=== PATIENT | male | born 1990 | race Two or more races ===

== ENCOUNTER 2024-07-06 15:57 | Emergency (ER) | payer MEDICAID, SELFPAY ==
--- NOTE | 2024-07-06 16:30 | PC.NURSE ---
called pt from lobby and outside and no answer @[id number]
--- NOTE | 2024-07-06 16:51 | PC.NURSE ---
Call pt from lobby and outside no answer
--- NOTE | 2024-07-06 17:17 | PC.NURSE ---
called pt from lobby and outside. no answer (x3)
== END 2024-07-06 16:30 | disposition left against medical advice (07) ==
PROVIDERS: Emergency Provider Emergency Medicine
DX: Z53.21 Procedure and treatment not carried out due to patient leaving prior to being seen by health care provider (principal)

== ENCOUNTER 2024-11-02 19:54 | Emergency (ER) | payer MEDICAID, SELFPAY ==
[2024-11-02 19:54] VITALS: BMI 25.0
--- NOTE | 2024-11-02 20:32 | PC.NURSE ---
pt did not answer when name was called and was not found outside.
--- NOTE | 2024-11-02 20:49 | PC.NURSE ---
PT ELOPED THE ER PRIOR TO BEING SEEN BY PROVIDER.
== END 2024-11-02 20:50 | disposition left against medical advice (07) ==
LOC: SERX 21:05
PROVIDERS: Emergency Provider Emergency Medicine
DX: Z53.21 Procedure and treatment not carried out due to patient leaving prior to being seen by health care provider (principal)

== ENCOUNTER 2025-09-04 21:33 | Emergency (ER) | payer MEDICAID, SELFPAY ==
[2025-09-04 21:34] VITALS: BMI 25.0
--- NOTE | 2025-09-04 22:10 | PC.NURSE ---
PATIENT STATED HE DID NOT HAVE TIME TO WAIT AND PROCEEDED TO LEAVE THE ED AT 0.
== END 2025-09-04 22:10 | disposition left against medical advice (07) ==
LOC: SERX 22:18
PROVIDERS: Emergency Provider Emergency Medicine
DX: Z53.21 Procedure and treatment not carried out due to patient leaving prior to being seen by health care provider (principal)
CPT/HCPCS: 99283

== ENCOUNTER 2025-09-05 02:13 | Emergency (ER) | payer MEDICAID, SELFPAY ==
[2025-09-05 02:14] VITALS: PULSE 110; RESP 22; O2SAT 98; BMI 22.0
[2025-09-05 02:32] VITALS: BP 124/82; PULSE 110; RESP 20; TEMP 36.7; O2SAT 97
--- NOTE | 2025-09-05 03:21 | PD.EDALCOH ---
ED Alcohol RME/HPI General Chief Complaint: General Adult/Misc Complain Stated Complaint: ill Time Seen by Provider: 09/05/25 02:52 Arrival date/time: 09/05/25 02:13 35M with history of alcohol/drug use presents to ED wanting some meds for alcohol withdrawal symptoms including tremors and anxiety. Patient also thinks he has worms in his stomach. Patient would also like some food. Limitations: no limitations Related Data Previous Rx's ?Medication ?Instructions ?Recorded albendazole 200 mg tablet 200 mg PO BID #4 tabs 09/05/25 Allergies Allergy/AdvReac Type Severity Reaction Status Date / Time No Known Allergies Allergy Verified 09/05/25 02:22 Review of Systems Review of Systems Systems Reviewed: All systems reviewed, normal except as documented Neurologic Neurologic: Reports as per HPI and Reports tremor(s) Psychiatric Psychiatric: Reports as per HPI, Reports anxiety and Reports paranoia Past Medical History Past Medical History CARDIAC: Negative Cardiac Disorders or Congestive Heart Failure RESPIRATORY: Positive Asthma; Negative Chronic Obstructive Pulmonary Disease (COPD) GASTROINTESTINAL: Negative Gastrointestinal Disorders GENITOURINARY: Negative Renal Disease ENDOCRINE: Negative Endocrine Disorders, Diabetes Mellitus Type 1 or Diabetes Mellitus Type 2 HEMATOLOGIC: Negative Sickle Cell Disease PSYCHO/SOCIAL: Positive Anxiety OTHER HISTORY: Positive Hospitalization, Chicken Pox and Measles; Negative Autoimmune Disease, Down Syndrome, Developmental Delay, Shingles, Falls, Blood Transfusions, Anesthesia Reactions or Cancer Social History SMOKING STATUS: Current every day smoker ED Exam General Limitations: Present no limitations General appearance: Present alert and anxious Head Head exam: Present atraumatic ENT ENT exam: Present normal exam, normal oropharynx and mucous membranes moist Neck Neck exam: Present normal inspection, full ROM and trachea midline Neurological Exam Neurological exam: Present alert and oriented X3 Psychiatric Psychiatric exam: Present normal affect, agitated and anxious Skin Skin exam: Present warm, dry, intact and normal color Course Quality Measures none Orders Category Date Time Status LORazepam [Ativan] Med 09/05/25 02:52 Discontinued 2 mg PO X1 ONE Vital Signs Vital signs: Vital Signs Temperature 98.0 F 09/05/25 02:32 Pulse Rate 110 H 09/05/25 02:32 Respiratory Rate 20 09/05/25 02:32 Blood Pressure 124/82 09/05/25 02:32 Pulse Oximetry (%) 97 09/05/25 02:32 Oxygen Delivery Method Room Air 09/05/25 02:32 O2 at 97% on RA and WNLs Discharge Plan Plan Patient Disposition: HOME (Self Care) Discharge Disposition comment: Stable Prescriptions/Referrals Prescriptions/Med Rec: New albendazole 200 mg tablet 200 mg PO BID Qty: 4 0RF Rx Instructions: 2 tabs once, then 2 tabs in 2 weeks Referrals: No Primary/Family,Physician [Primary Care Provider] - In 1 week Problem List Clinical Impression: Alcohol withdrawal, Encounter for screening for infectious and parasitic diseases, unspecified Patient/Caregiver Discharge Instructions Education Materials: Alcohol Withdrawal: What to Expect Additional Instructions: Please follow-up with PCP within 24-48 hours and return immediately if symptoms worsen. Print Language: Austrian Stand Alone Forms: Patient Portal Info Letter FABIO/JOE Supervising Physician FABIO/JOE Supervising Physician: Dr. Keith Alcohol MDM Narrative MDM Narrative: 35M with history of alcohol/drug use presents to ED wanting some meds for alcohol withdrawal symptoms including tremors and anxiety. Patient also thinks he has worms in his stomach. Patient would also like some food. Physical exam reveals anxious individual with some tremors. Patient is afebrile and alert. Meds and correctional classification counselor given. Food given as well. Patient data External records reviewed:: [facility] previous records Clinical information provided by:: patient Social determinants that could affect healthcare access:: alcohol use Patient has the following chronic illnesses:: alcohol/drug How is presenting disease/condition affected by chronic disease/condition?: exacerbated by Evaluation data The following diagnostics were reviewed and interpreted by me:: other (specify) (none) Lab and/or radiology exams considered but not ordered:: not ordered Interpretation Summary: n/a Medications / Prescriptions Medications or Prescriptions considered but not ordered:: ordered Medication administrations:: Medication Administration History Discontinued Medications Lorazepam (Lorazepam 0.5 Mg Tablet) 2 mg PO X1 ONE Stop: 09/05/25 02:53 above Consultations Consultation(s) initiated? (list below): No Diagnosis Differential diagnosis alcohol: alcohol withdrawal delirium, hypomagnesemia, alcohol intoxication, alcohol ketoacidosis, alcohol withdrawal syndrome, alcohol withdrawal seizure and other (screening for disease) Most likely diagnosis given after review of the tests above:: screening for disease and alcohol withdrawal Admission Indicated Admission indicated?: not indicated Admission Request Was there a request for admission?: No Disposition Plan Disposition Plan: Discharge Discharge Attestation Discharge Attestation: The patient and all family members were given an opportunity to ask questions and understood the discharge instructions. Discharge instructions specifically effects, indications for sooner follow up or return to the emergency department, and the expected course of current diagnosis. Patient condition: Stable
== END 2025-09-05 03:58 | disposition home or self-care (01) ==
PROVIDERS: Emergency Provider Emergency Medicine
DX: F10.239 Alcohol dependence with withdrawal, unspecified (principal); F41.9 Anxiety disorder, unspecified; Y90.9 Presence of alcohol in blood, level not specified
CPT/HCPCS: 99284; A9270